=== PATIENT | male | born 1995 | race Asian ===

== ENCOUNTER 2019-01-05 11:53 | Emergency (ER) | payer OTHER ==
[~2019-01-05] VITALS: Ht 177.8 cm; Wt 75.0 kg
[2019-01-05 12:33] VITALS: BP 147/85
[2019-01-05] MEDS ORDERED: IBUPROFEN 200 MG TABLET ONE (12:39)
[2019-01-05] MEDS ORDERED: IBUPROFEN 600 MG TABLET PO ONE (13:00)
--- NOTE | 2019-01-05 13:27 | NUR ---
Patient/Caregiver given discharge instructions and they have confirmed that they understand the instructions. Patient ambulatory with steady gait.
== END 2019-01-05 13:28 | disposition home or self-care (01) ==
LOC: ED 13:22
DX: S93.491A Sprain of other ligament of right ankle, initial encounter (principal); X58.XXXA Exposure to other specified factors, initial encounter; Y93.89 Activity, other specified; Y92.89 Other specified places as the place of occurrence of the external cause; Y99.8 Other external cause status
CPT/HCPCS: 99283